=== PATIENT | female | born 2000 | race Caucasian/White ===

== ENCOUNTER 2020-10-21 17:09 | Emergency (ER) | payer OTHER ==
[2020-10-21 17:16] VITALS: BP 148/104; RESP 18; TEMP 98.6
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
[2020-10-21 17:54] LABS: Basophils # (A) 0.1 k/uL (0-0.2); Basophils % (A) 0 %; Eosinophils # (A) 0.2 k/uL (0-0.7); Eosinophils % (A) 1 %; HCT 41.4 % (34.0-46.0); HGB 13.7 gm/dL (11.4-16.0); Lymphocytes # (A) 3.4 k/uL (1.0-4.8); Lymphocytes % (A) 25 %; MCH 27.8 pg (25.0-35.0); MCV 84.1 fL (80.0-100.0); Mean Platelet Volume 6.9; Monocytes # (A) 0.5 k/uL (0-1.0); Monocytes % (A) 4 %; Neutrophils # (A) 9.4 k/uL (1.3-7.7); Neutrophils % (A) 69 %; Platelet Count 364 k/uL (150-450); RBC 4.92 m/uL (3.80-5.40); RDW 12.7 % (11.5-15.5); WBC 13.5 k/uL (3.8-10.6)
[2020-10-21 18:06] LABS: ALT 16 U/L (4-34); AST 25 U/L (14-36); African American GFR (CKD) >90 (>60 ml/min/1.73 sqM); Albumin 4.3 g/dL (3.5-5.0); Alkaline Phosphatase 72 U/L (38-126); Anion Gap 9 mmol/L; Blood Urea Nitrogen 15 mg/dL (7-17); Calcium 9.9 mg/dL (8.4-10.2); Carbon Dioxide 28 mmol/L (22-30); Chloride 103 mmol/L (98-107); Glucose 99 mg/dL (74-99); Lipase 74 U/L (23-300); Non-African American GFR(CKD) >90 (>60 ml/min/1.73 sqM); Potassium 4.1 mmol/L (3.5-5.1); Sodium 140 mmol/L (137-145); Total Bilirubin 0.3 mg/dL (0.2-1.3); Total Protein 7.7 g/dL (6.3-8.2)
[2020-10-21 18:23] LABS: HCG,Quantitative Serum <2.4 mIU/mL
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
[2020-10-21 20:37] VITALS: PULSE 80
== END 2020-10-21 20:37 | disposition home or self-care (01) ==
LOC: EC 17:09
DX: M54.2 Cervicalgia (principal); R07.9 Chest pain, unspecified; R10.9 Unspecified abdominal pain; M25.571 Pain in right ankle and joints of right foot; F17.290 Nicotine dependence, other tobacco product, uncomplicated; V43.52XA Car driver injured in collision with other type car in traffic accident, initial encounter; Y92.410 Unspecified street and highway as the place of occurrence of the external cause
CPT/HCPCS: 36415; 80053; 83690; 85025; 84702; 73610; 72125; 70450; 71260; 74177; 99284; Q9967

== ENCOUNTER → 2021-04-12 | Outpatient (CLI) | payer OTHER ==
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
== END | disposition home or self-care (01) ==
LOC: RADXRMAIN 13:27
PROVIDERS: ATTEND Emergency Medicine
DX: S67.10XA Crushing injury of unspecified finger(s), initial encounter (principal); S61.202A Unspecified open wound of right middle finger without damage to nail, initial encounter